=== PATIENT | male | born 1975 | race Two or more races ===

== ENCOUNTER 2017-09-12 00:58 | Emergency (ER) | payer OTHER ==
[~2017-09-12] VITALS: Ht 180.3 cm; Wt 99.8 kg
--- NOTE | 2017-09-12 01:28 | NUR ---
PT PRESENTED TO THE ER WITH A C/O FEELING CRAZY. PT STATED THAT HE'S HEARING VOICES AND HAS INTERMITTENT THOUGHTS OF SI W/O A PLAN. PT AMBULATED TO THE BATHROOM, BUT WAS NOT ABLE TO GIVE A URINE SAMPLE. PT THEN AMBULATED TO BED #4. PT STATED THAT HE TAKES METH, BUT DOES NOT RESPOND TO QUESTIONS ABOUT DRINKING OR SMOKING.
[2017-09-12 01:53] LABS: BASOPHILS % (AUTO) 0.2 % (0.0-2.0); EOSINOPHILS # (AUTO) 0.1 /CMM (0.0-0.7); EOSINOPHILS % (AUTO) 0.9 % (0.0-6.0); HEMATOCRIT 48 % (39-51); HEMOGLOBIN 16.4 g/dL (13.5-17.5); LYMPHOCYTES # (AUTO) 2.7 /CMM (0.8-4.8); LYMPHOCYTES % (AUTO) 24.3 % (20.0-44.0); MEAN CORPUSCULAR HEMOGLOBIN 30 PG (26.0-33.0); MEAN CORPUSCULAR HGB CONC 34 g/dl (31.0-36.0); MEAN CORPUSCULAR VOLUME 87 fL (80-96); MONOCYTES # (AUTO) 0.8 /CMM (0.1-1.30); MONOCYTES % (AUTO) 7.3 % (2.0-12.0); NEUTROPHILS # (AUTO) 7.5 /CMM (1.8-8.9); NEUTROPHILS % (AUTO) 67.3 % (43.0-81.0); PLATELET COUNT (AUTO) 246 /CMM (150-450); RDW COEFFICIENT OF VARIATION 13.6 (11.5-15.0); RED BLOOD CELL COUNT(AUTO) 5.48 MIL/uL (4.5-6.0); WHITE BLOOD COUNT (AUTO) 11.1 K/uL (4.3-11.0)
--- NOTE | 2017-09-12 01:58 | NUR ---
PT REC'D JUICE X2.
[2017-09-12 02:09] LABS: ALBUMIN 4.2 g/dL (3.4-5.0); BILIRUBIN,DIRECT 0.2 mg/dL (0.0-0.2); BILIRUBIN,TOTAL 0.9 mg/dL (0.2-1.0); CALCIUM, SERUM 9.6 mg/dL (8.5-10.1); CREATININE 0.9 mg/dL (0.6-1.3); POTASSIUM 3.7 mmol/L (3.5-5.1); TOTAL PROTEIN, SERUM 8.3 g/dL (6.4-8.2)
[2017-09-12 02:17] LABS: SALICYLATE 0.3 mg/dL (2.8-20.0)
--- NOTE | 2017-09-12 02:30 | NUR ---
PT STATED THAT HE STILL COULD NOT GIVE A URINE SAMPLE. PT REC'D A JUG OF WATER.
--- NOTE | 2017-09-12 03:48 | NUR ---
URINE SAMPLE SENT TO LAB.
[2017-09-12 03:55] LABS: APPEARANCE,URINE CLEAR (CLEAR); BILIRUBIN,URINE NEGATIVE (NEGATIVE); BLOOD, URINE 1+ Ery/uL (NEGATIVE); COLOR,URINE YELLOW (YELLOW); KETONES,URINE 1+ (NEGATIVE); LEUKOCYTE ESTERASE ,URINE NEGATIVE (NEGATIVE); NITRITE, URINE NEGATIVE (NEGATIVE); PROTEIN,URINE NEGATIVE (NEGATIVE); UGLUCOSE NEGATIVE (NEGATIVE); UROBILINOGEN,URINE 0.2 EU/dL (0.2)
[2017-09-12 03:59] LABS: BACTERIA,URINE None seen /HPF (None Seen); SQUAMOUS EPITHELIAL CELL,UR Few /HPF (None Seen)
[2017-09-12] MEDS ORDERED: ALBUTEROL FS 2.5 MG/0.5 ML VIAL.NEB NEB ONE (04:30)
[2017-09-12] MEDS ORDERED: QUETIAPINE FUMARATE 25 MG TABLET ONE (04:46)
--- NOTE | 2017-09-12 04:55 | NUR ---
PT REC'D 2 SANDWICHES.
[2017-09-12] MEDS ORDERED: QUETIAPINE FUMARATE 25 MG TABLET PO SCH (05:00)
--- NOTE | 2017-09-12 06:21 | NUR ---
DARLIN DEVLIN LCSW, IS ARRIVED AND IS AT THE BEDSIDE.
--- NOTE | 2017-09-12 06:50 | NUR ---
PT TO BE DISCHARGED IN A FEW HOURS.
--- NOTE | 2017-09-12 06:50 | NUR ---
DARLIN DEVLIN, STUDENT ASSISTANCE COUNSELOR LEFT.
--- NOTE | 2017-09-12 07:10 | NUR ---
Patient is resting comfortably in bed with eyes closed. Easily aroused. VSS
--- NOTE | 2017-09-12 09:55 | NUR ---
PATIENT AMBULATES TO THE RESTROOM WITH STABLE GAIT.
--- NOTE | 2017-09-12 10:25 | NUR ---
Patient discharged to home in stable condition. Written and verbal after care instructions given. Patient verbalizes understanding of instruction. AAOX3, AMBULATES WITH STABLE GAIT.
[2017-09-12 10:26] VITALS: BP 125/75
== END 2017-09-12 10:27 | disposition home or self-care (01) ==
LOC: ER 01:03
DX: F15.10 Other stimulant abuse, uncomplicated (principal); R45.851 Suicidal ideations; F29 Unspecified psychosis not due to a substance or known physiological condition
CPT/HCPCS: 36415; 71045; 80048; 80076; 80305; 80329; 81001; 85025; 99285; A4606; G0480 ×2; Z7610; 81000-TC

== ENCOUNTER 2017-10-13 16:07 | Emergency (ER) | payer OTHER ==
[~2017-10-13] VITALS: Ht 182.9 cm; Wt 113.4 kg
--- NOTE | 2017-10-13 16:37 | NUR ---
PT ARRIVED IN THE ER, A/OX3, PT STATED, "I DON'T FEEL GOOD. I'M HEARING VOICES" DENIES SI, HI. POOR HISTORIAN. UNABLE TO PROVIDE INFORMATION. NO AGGRESSIVE BEHAVIOR NOTED. COOPERATIVE, FOLLOWING INTRUCTIONS. ASSISTED TO ED BED 18.
[2017-10-13 16:49] LABS: BASOPHILS # (AUTO) 0.2 /CMM (0.0-0.2); BASOPHILS % (AUTO) 1.9 % (0.0-2.0); EOSINOPHILS % (AUTO) 1.2 % (0.0-6.0); HEMATOCRIT 51 % (39-51); HEMOGLOBIN 17.8 g/dL (13.5-17.5); LYMPHOCYTES # (AUTO) 2.1 /CMM (0.8-4.8); LYMPHOCYTES % (AUTO) 24.7 % (20.0-44.0); MEAN CORPUSCULAR HGB CONC 35 g/dl (31.0-36.0); MEAN CORPUSCULAR VOLUME 85 fL (80-96); MONOCYTES # (AUTO) 0.6 /CMM (0.1-1.30); NEUTROPHILS # (AUTO) 5.6 /CMM (1.8-8.9); NEUTROPHILS % (AUTO) 65.2 % (43.0-81.0); PLATELET COUNT (AUTO) 268 /CMM (150-450); RDW COEFFICIENT OF VARIATION 12.1 (11.5-15.0); RED BLOOD CELL COUNT(AUTO) 5.96 MIL/uL (4.5-6.0); WHITE BLOOD COUNT (AUTO) 8.6 K/uL (4.3-11.0)
[2017-10-13] MEDS ORDERED: OLANZAPINE 5 MG/TAB.RAPDIS PO ONE (17:00)
[2017-10-13 17:02] LABS: ALCOHOL, BLOOD < 3 mg/dL (0-0); CALCIUM, SERUM 9.4 mg/dL (8.5-10.1); CARBON DIOXIDE 24 mmol/L (21-32); CHLORIDE 100 mmol/L (98-107); GLUCOSE 89 mg/dL (74-106); POTASSIUM 4.8 mmol/L (3.5-5.1); SODIUM SERUM 137 mmol/L (136-145); UREA NITROGEN, BLOOD 15 mg/dL (7-18)
--- NOTE | 2017-10-13 17:08 | NUR ---
CALLED [facility] FOR PSYCH EVAL, ETA 1 HOUR
[2017-10-13] MEDS ORDERED: OLANZAPINE 5 MG TABLET ONE (17:22)
--- NOTE | 2017-10-13 18:18 | NUR ---
DR DELA CRUZ IN TO SEE PT. PT IS AAOX 4 DENIES SI. WANTS TO GO HOME AND DONT WANT TO WAIT FOR PSYCH EVAL. PT IS D/C HOME IN STABLE CONDITION.
[2017-10-13 18:21] VITALS: BP 132/75
== END 2017-10-13 18:23 | disposition home or self-care (01) ==
LOC: ER 16:09
DX: F23 Brief psychotic disorder (principal); R45.851 Suicidal ideations; F17.200 Nicotine dependence, unspecified, uncomplicated; Z59.0 Homelessness
CPT/HCPCS: 36415; 80048-TC; 80305; 85025-TC; A4606; G0480; Z7610

== ENCOUNTER 2017-12-15 01:43 | Emergency (ER) | payer OTHER ==
--- NOTE | 2017-12-15 01:50 | NUR ---
[facility] in [facility] - 12/15/17 at 0151 by CHRISTIANO PT HAD VERY BIZARRE BEHAVIOR DURING TRIAGE.
--- NOTE | 2017-12-15 01:55 | NUR ---
CALLED PT IN WAITING AREA, NO ANSWER.
--- NOTE | 2017-12-15 02:06 | NUR ---
CALLED PT IN WAITING AREA, NO ANSWER.
--- NOTE | 2017-12-15 02:31 | NUR ---
CALLED PT IN WAITING AREA, NO ANSWER.
== END 2017-12-15 02:45 | disposition left against medical advice (07) ==
LOC: ER 01:43
DX: Z53.21 Procedure and treatment not carried out due to patient leaving prior to being seen by health care provider (principal)

== ENCOUNTER 2018-07-08 05:24 | Emergency (ER) | payer OTHER ==
[~2018-07-08] VITALS: Ht 177.8 cm; Wt 90.7 kg
[2018-07-08 05:41] VITALS: BP 144/83
--- NOTE | 2018-07-08 05:45 | NUR ---
pt left the unit and hurriedly walked out by the exit door without being seen.
== END 2018-07-08 05:45 | disposition left against medical advice (07) ==
LOC: ER 05:32
DX: Z53.21 Procedure and treatment not carried out due to patient leaving prior to being seen by health care provider (principal)
CPT/HCPCS: A4606; Z7610

== ENCOUNTER 2021-01-23 04:53 | Emergency (ER) | payer OTHER ==
[~2021-01-23] VITALS: Ht 182.9 cm; Wt 108.9 kg
--- NOTE | 2021-01-23 05:00 | NUR ---
BIBRA FROM [place] FOR C/O TWEAKING DUE TO METH USE, PT A, OX4, RESPONSIVE TO QUESTIONS. DENIED SI/HI, COOPERATIVE, PT WAS PLACED IN BED 14 ER ON MONITOR. VSS. WILL CONT TO [facility]
[2021-01-23 05:17] LABS: BASOPHILS % (AUTO) 0.6 % (0.0-2.0); HEMATOCRIT 46 % (39-51); HEMOGLOBIN 15.6 g/dL (13.5-17.5); LYMPHOCYTES # (AUTO) 3.1 K/uL (0.8-4.8); LYMPHOCYTES % (AUTO) 38.5 % (20.0-44.0); MEAN CORPUSCULAR HGB CONC 34 g/dl (31.0-36.0); MEAN CORPUSCULAR VOLUME 88 fL (80-96); MONOCYTES # (AUTO) 0.7 K/uL (0.1-1.30); MONOCYTES % (AUTO) 8.3 % (2.0-12.0); NEUTROPHILS % (AUTO) 49.6 % (43.0-81.0); PLATELET COUNT (AUTO) 213 K/uL (150-450); RED BLOOD CELL COUNT(AUTO) 5.22 MIL/uL (4.5-6.0); WHITE BLOOD COUNT (AUTO) 8.1 K/uL (4.3-11.0)
[2021-01-23 05:25] LABS: CALCIUM, SERUM 8.9 mg/dL (8.5-10.1); CARBON DIOXIDE 27 mmol/L (21-32); CHLORIDE 105 mmol/L (98-107); CREATININE 0.8 mg/dL (0.6-1.3); GLUCOSE 101 mg/dL (74-106); SODIUM SERUM 140 mmol/L (136-145); UREA NITROGEN, BLOOD 9 mg/dL (7-18)
[2021-01-23] MEDS ORDERED: LORAZEPAM 1 MG TABLET PO ONE (05:30)
[2021-01-23 05:31] LABS: ACETAMINOPHEN 0 ug/ml (10-30); ALANINE AMINOTRANSFERASE 35 U/L (12-78); ALBUMIN 3.7 g/dL (3.4-5.0); ALCOHOL, BLOOD < 3 mg/dL (0-0); ALKALINE PHOSPHATASE 95 U/L (46-116); ASPARTATE AMINOTRANSFERASE 24 U/L (15-37); BILIRUBIN,DIRECT 0.2 mg/dL (0.0-0.2); BILIRUBIN,TOTAL 0.6 mg/dL (0.2-1.0); TOTAL PROTEIN, SERUM 6.9 g/dL (6.4-8.2)
[2021-01-23] MEDS ORDERED: LORAZEPAM 1 MG TABLET ONE (05:56)
--- NOTE | 2021-01-23 07:10 | NUR ---
ASSESSED PT ON BED ASLEEP EASILY AROUSABLE, NOT IN RESPIRATORY DISTRESS, V/S STABLE, KEPT RESTED AND COMFORTABLE. WILL CONTINUE TO MONITOR.
[2021-01-23 08:34] VITALS: BP 129/65
--- NOTE | 2021-01-23 08:34 | NUR ---
Patient discharged to home in stable condition. Written and verbal after care instructions given. Patient verbalizes understanding of instruction.
== END 2021-01-23 08:35 | disposition home or self-care (01) ==
LOC: ER 04:54
DX: F15.10 Other stimulant abuse, uncomplicated (principal); Z59.0 Homelessness
CPT/HCPCS: 36415; 80048-TC; 80076-TC; 85025-TC; G0480

== ENCOUNTER 2025-07-07 09:44 | Emergency (ER) | payer OTHER ==
[~2025-07-07] VITALS: Ht 182.9 cm; Wt 117.9 kg
[2025-07-07 10:21] LABS: PLATELET COUNT (AUTO) 208 K/uL (150-450); RED BLOOD CELL COUNT(AUTO) 5.83 MIL/uL (4.5-6.0); RED CELL DISTRIBUTION WIDTH 13.8 % (11.5-15.0); WHITE BLOOD COUNT (AUTO) 9.2 K/uL (4.3-11.0)
[2025-07-07 10:31] LABS: CALCIUM, SERUM 8.8 mg/dL (8.5-10.1); CREATININE 0.9 mg/dL (0.6-1.3); SODIUM SERUM 139 mmol/L (136-145); UREA NITROGEN, BLOOD 10 mg/dL (7-18)
[2025-07-07 10:37] LABS: ALCOHOL, BLOOD < 3 mg/dL (0-10); ASPARTATE AMINOTRANSFERASE 54 U/L (15-37); TOTAL PROTEIN, SERUM 7.4 g/dL (6.4-8.2)
[2025-07-07] MEDS ORDERED: LORAZEPAM 1 MG TABLET ONE (11:38)
[2025-07-07] MEDS: LORAZEPAM 1 MG TABLET PO ONE (11:44)
[2025-07-07] MEDS ORDERED: ACETAMINOPHEN 325 MG TABLET ONE (11:46)
[2025-07-07] MEDS: ACETAMINOPHEN 325 MG TABLET PO ONE (11:48)
[2025-07-07 12:09] LABS: APPEARANCE,URINE CLEAR (CLEAR); BLOOD, URINE NEGATIVE Ery/uL (NEGATIVE); LEUKOCYTE ESTERASE ,URINE NEGATIVE (NEGATIVE); NITRITE, URINE NEGATIVE (NEGATIVE); UGLUCOSE NEGATIVE (NEGATIVE)
[2025-07-07 12:10] LABS: ADD URINE CULTURE NO; SQUAMOUS EPITHELIAL CELL,UR Few /HPF (None Seen)
[2025-07-07 12:30] LABS: BARBITURATE, URINE NEGATIVE (NEGATIVE); BENZODIAZEPINE, URINE NEGATIVE (NEGATIVE); CANNABINOID, URINE NEGATIVE (NEGATIVE); COCCAINE, URINE NEGATIVE (NEGATIVE); OPIATE, URINE NEGATIVE (NEGATIVE)
[2025-07-07 12:32] LABS: AMPHETAMINE, URINE POSITIVE (NEGATIVE)
[2025-07-07 12:46] VITALS: BP 134/82; TEMP 98; O2SAT 97
== END 2025-07-07 12:47 | disposition home or self-care (01) ==
LOC: ER 09:50
DX: F15.10 Other stimulant abuse, uncomplicated (principal); F41.9 Anxiety disorder, unspecified; F17.200 Nicotine dependence, unspecified, uncomplicated; Z59.00 Homelessness unspecified; Z79.899 Other long term (current) drug therapy
CPT/HCPCS: 36415; 80048-TC; 80076-TC; 81001; 85025-TC; G0480